=== PATIENT | male | born 1975 | race African-American/Black ===

== ENCOUNTER 2019-09-27 17:10 | Emergency (ER) | payer SELFPAY ==
[~2019-09-27] VITALS: Ht 170.2 cm; Wt 61.2 kg
[2019-09-27] MEDS ORDERED: LIDOCAINE 1%/EPI 1:100,000 20 ML VIAL. INJ ONE (18:15)
--- NOTE | 2019-09-27 18:25 | PHYS DOC ---
Adult General Chief Complaint Chief Complaint: LACERATION/AVULSION HPI HPI Patient is a 44 year old male who presents with patient is intoxicated and nurse states that the ex- called and stated that the patient is an alcoholic. Patient states "I was eating and it might top lip. It was unfortunate accident". Patient has a deep laceration on his top lip that is not all the way through but is deep and extends up to right below the septum. Patient denies any pain. Patient's tearful and states he needs to get home to his children although his ex- is with the children. He states that he also needs to go to work on Wednesday. Patient is told that today is Wednesday. Patient alert and oriented he does have a steady gait. Patient does keep repeating himself. He denies falling or hitting his face or his head and he denies syncope. (DAMIEN ELAM APRN) Review of Systems Review of Systems Constitutional: Intoxication. Denies fever or chills [] Integument: Laceration to top lip. Denies rash or skin lesions [] All other systems were reviewed and found to be within normal limits, except as documented in this note. (DAMIEN ELAM APRN) Current Medications Current Medications Current Medications Medications (Trade) Dose Ordered Sig/Shaquille Start Time Stop Time Status Last Admin Dose Admin Lidocaine/ Epinephrine (LIDOCAINE 1%-EPI 1:100,000 Multi-Dose) 10 ml 1X ONCE 09/27/19 18:15 09/27/19 18:16 UNV (RIA EVANS DO) Physical Exam Physical Exam Constitutional: Well developed, well nourished, no acute distress, non-toxic appearance. [] HENT: Normocephalic, atraumatic, bilateral external ears normal, oropharynx moist, no oral exudates, nose normal. [] Eyes: PERRLA, EOMI, conjunctiva normal, no discharge. [] Neck: Normal range of motion, no tenderness, supple, no stridor. [] Cardiovascular:Heart rate regular rhythm, no murmur [] Lungs & Thorax: Bilateral breath sounds clear to auscultation [] Abdomen: Bowel sounds normal, soft, no tenderness, no masses, no pulsatile masses. [] Skin: Laceration to top lip. Warm, dry, no erythema, no rash. [] Back: No tenderness, no CVA tenderness. [] Extremities: No tenderness, no cyanosis, no clubbing, ROM intact, no edema. [] Neurologic: Alert and oriented X 3, normal motor function, normal sensory function, no focal deficits noted. [] Psychologic: Affect normal, judgement normal, mood normal. [] (DAMIEN ELAM APRN) EKG EKG [] ([facility]) Radiology/Procedures Radiology/Procedures [] ([facility]) Radiology/Procedures Indication: [upper and lower lip laceration] Procedure: The patient was placed in the appropriate position and anesthesia around the washed with saline and 3 ml of 15lidocaine w/epi was injected]. The area was then explored and reclensed. The laceration was closed with 4 burried 54-0 vicry sutures and 8 mucosal sutures with alignment of vermilion border. The wound area was then dressed with rewashed. Total repaired wound length: 3 cm]. Other Items: ] The patient tolerated the procedure well Complications: [none. (RIA EVANS DO) Impressions: [facility] [address] [place] [address] IMAGING REPORT Signed PATIENT: NATASHA RODRÍGUEZ ACCOUNT: [id number] : 1975 LOCATION: ER AGE: 44 SEX: M EXAM STATUS: PRE ER ORD. PHYSICIAN: KOLTON OSBORNE MD REASON: facial injury PROCEDURE: CT HEAD AND CERVICAL SPINE WO Exam: CT head, maxillofacial and cervical spine without contrast INDICATION: Facial injury TECHNIQUE: Sequential axial images through the head, face and cervical spine were obtained without the administration of IV contrast. Comparisons: None FINDINGS: Head: No focal parenchymal lesion or hemorrhage is identified. There is no midline shift or sulcal effacement. No acute vascular territory infarction is identified. Elam-white distinction is preserved. The ventricular system is within normal limits without compression hydrocephalus. The basal cisterns are well maintained. Face: Soft tissue irregularity along the upper lip. Mild mucosal thickening of the left maxillary sinus. Globes and intraorbital contents are normal. No acute fractures. Cervical spine: There is reversal of the normal cervical lordosis which may be positional. Vertebral body heights are well-maintained. Fracture to the cervical spine is not identified. Multilevel mild spondylotic change in cervical spine greatest from C3-C4 to C5-C6. Visualized paraspinal soft tissues are unremarkable. IMPRESSION: 1. No acute intracranial abnormality. 2. Soft tissue irregularity along the upper lip, correlate for laceration. No acute osseous abnormality identified at the face. 3. Negative CT C-spine for acute traumatic injury. Exposure: One or more of the following in the visualized dose reduction techniques were utilized for this examination: 1. Automated exposure control 2. Adjustment of the MA and/or KV according to patient size Use of iterative of reconstructive technique Electronically signed by: Beatrice Mendoza MD (09/27/2019 6:22 PM) [facility] DICTATED and SIGNED BY: BEATRICE MENDOZA MD DATE: 09/27/191821 (DAMIEN ELAM APRN) Course & Med Decision Making Course & Med Decision Making Patient is alert and oriented. He does keep repeating himself. There is no other trauma to the patient's body or head or face other than the laceration to his top lip. Bleeding is controlled. Patient is refusing CTs of his head and face and states identified about needing there is nothing broken in my face. There is no damage to his teeth. After speaking with the patient and telling him how serious the laceration is to his face and that if he leaves there is a huge risk of infection and deformity to his lip he states that we can do whatever we need to do. He states that he understands. Patient then begins stating that he needs to get home and he needs to leave and he needs to get his children. I asked the patient if his ex- is with the children states yes but he needs to get them. Dr. Osborne also spoke to the patient about needing CT and his lip looked at by plastics possibly and that we do not have plastics here. Dr Evans has also examined the laceration and states he will sew the laceration. No neck or back tenderness patient has full range of motion of his neck. Patient moves all extremities with normal range of motion. No deformities to any of his extremities. Speaks in full clear sentences. Skin pink warm and dry. Ambulatory with a steady gait. PERRLA. Patient denies ingestion or overdose taking any current medications or drugs. Patient agreed to CT scan and they are normal. Refusing blood work. (DAMIEN ELAM APRN) Dragon Disclaimer Dragon Disclaimer This electronic medical record was generated, in whole or in part, using a voice recognition dictation system. (DAMIEN ELAM APRN) Departure Departure Impression: Primary Impression: Intoxication Additional Impression: Laceration Disposition: 01 HOME, SELF-CARE Condition: STABLE Patient Instructions: Alcohol Intoxication, [id number], Alcohol and Drug Addiction, Finding Treatment, Facial Laceration, [id number], Laceration Care, Adult, [id number] Additional Instructions: Follow-up with primary care provider. He will need to return in 10 days for suture removal. Problem Qualifiers DAMIEN ELAM APRN Sep 27, 2019 18:25 RIA EVANS DO Sep 27, 2019 18:45
[2019-09-27 18:50] VITALS: BP 179/116
== END 2019-09-27 18:55 | disposition home or self-care (01) ==
LOC: ER 17:10
DX: S01.511A Laceration without foreign body of lip, initial encounter (principal); F10.229 Alcohol dependence with intoxication, unspecified; X58.XXXA Exposure to other specified factors, initial encounter; Y93.89 Activity, other specified; Y92.89 Other specified places as the place of occurrence of the external cause; Y99.8 Other external cause status
CPT/HCPCS: 40650; 70450; 70486; 72125; 99284; J3490